=== PATIENT | female | born 1980 | race Caucasian/White ===

== ENCOUNTER 2025-02-08 11:28 | Emergency (ER) | payer OTHER ==
[~2025-02-08] VITALS: Ht 167.6 cm; Wt 83.9 kg
[2025-02-08] MEDS ORDERED: Ketorolac Tromethamine 30mg Vial IV ONE ×2 (11:40→16:45)
[2025-02-08] MEDS ORDERED: Ondansetron HCl 2 MG / ML 2ML Vial IV ONE ×2 (11:40→16:45)
[2025-02-08 12:56] LABS: Source, Urine Voided
[2025-02-08 13:19] LABS: Bilirubin, Urine Neg (Neg); Glucose Qualitative, Urine Neg (Neg); Ketones, Urine Neg (Neg); Leukocyte Esterase, Urine 2+ (Neg); Protein, Urine Neg (Neg); Specific Gravity, Urine 1.010 (1.003-1.022); Urobilinogen, Urine NORM (Normal)
[2025-02-08 13:32] LABS: BASOPHILS ABSOLUTE AUTO 0.03 K/mm3 (0.00-0.23); BASOPHILS PERCENT AUTO 0 % (0-2); EOSINOPHILS ABSOLUTE AUTO 0.01 K/mm3 (0.00-0.68); EOSINOPHILS PERCENT AUTO 0 % (0-6); Hematocrit 40.5 % (33.0-51.0); Hemoglobin 11.3 g/dL (11.5-16.0); IMMATURE GRAN ABSOLUTE AUTO 0.09 K/mm3 (0.00-0.10); IMMATURE GRAN PERCENT AUTO 1 % (0-1); LYMPHOCYTES ABSOLUTE AUTO 1.51 K/mm3 (0.84-5.20); LYMPHOCYTES PERCENT AUTO 8 % (21-46); MONOCYTES ABSOLUTE AUTO 0.62 K/mm3 (0.16-1.47); MONOCYTES PERCENT AUTO 3 % (4-13); Mean Corpuscular HGB Conc 27.9 g/dL (31.5-36.5); Mean Corpuscular Volume 67 fL (80-100); NEUTROPHILS ABSOLUTE AUTO 16.64 K/mm3 (1.96-9.15); NEUTROPHILS PERCENT AUTO 88 % (41-73); NRBC ABSOLUTE 0.00 K/mm3 (0.00-0.02); NRBC Auto 0.0 /100 WBC (0.0-0.2); Platelet Count 277 K/mm3 (150-400); RDW Coefficient Variation 22.5 % (11.7-14.2); RDW Standard Deviation 51.9 fL (35.1-46.3)
[2025-02-08 13:39] LABS: Color, Urine Pale Yellow (P-Yellow)
[2025-02-08 13:53] LABS: Alanine Aminotransfer (ALT/SGP 21.0 U/L (12-78); Albumin, Blood 3.6 g/dL (3.4-5.0); Albumin/Globulin Ratio 0.8 (0.8-1.8); Anion Gap 4.0 mmol/L (3-11); Aspartate Aminotrans (AST/SGOT 23.0 U/L (12-37); Bilirubin, Total 0.4 mg/dL (0.1-1.0); Blood Urea Nitrogen 6.0 mg/dL (8-24); CO2, Blood 30.0 mmol/L (21-32); Calcium, Blood 9.6 mg/dL (8.5-10.1); Chloride, Blood 103.0 mmol/L (98-108); Creatinine, Blood 0.78 mg/dL (0.40-1.00); Globulin, Blood 4.3 g/dL (2.2-4.0); Glucose, Blood 109.0 mg/dL (70-99); Potassium, Blood 4.3 mmol/L (3.5-5.5); Sodium, Blood 133.0 mmol/L (136-145); Total Protein, Blood 7.9 g/dL (6.4-8.2)
[2025-02-08] MEDS ORDERED: Morphine Sulfate 4 MG/1 ML Injection IV ONE (17:35)
[2025-02-08] MEDS ORDERED: HYDROcodone 5-APAP 325 TAB PO ONE (18:00)
[2025-02-08] MEDS ORDERED: RX Prepack 2 Tabs Ondansetron ODT 4MG UD ONE (18:55)
[2025-02-08] MEDS ORDERED: RX Prepack 6 Tabs Oxycodone 5mg UD ONE (18:55)
== END 2025-02-08 19:19 | disposition home or self-care (01) ==
LOC: ER 11:28
PROVIDERS: Emergency Medicine
DX: R10.30 Lower abdominal pain, unspecified (principal); Z88.0 Allergy status to penicillin
CPT/HCPCS: 74177; 76830; 76856; 80053; 81001; 83690; 84703; 85025; 87086; 96374-59; 96375; 99284-25; A9270; J1885; J2270; J2405; Q9967